=== PATIENT | female | born 1995 | race Two or more races ===

== ENCOUNTER → 2017-01-20 | Outpatient (REF) | payer OTHER ==
[2017-01-20 18:27] LABS: CONTROL LINE UCG INT CTR LINE PRESENT
== END ==
LOC: M SMT 17:04
PROVIDERS: ATTEND Nurse Practitioner Family
DX: N39.0 Urinary tract infection, site not specified (principal)

== ENCOUNTER → 2017-01-27 | Outpatient (CLI) | payer OTHER ==
[~2017-01-27] MED LIST: ISOVUE-370 76% 100ML VIAL (Q9967) As Ordered ONE
--- NOTE | 2017-01-28 07:01 | REP ---
Clinical: Gross hematuria. Recurrent urinary tract infection. Technique: Axial precontrast, contrast enhanced, and delayed images of the abdomen and pelvis from the lung bases to the pubic symphysis using 100 ml Isovue 370 intravenous contrast material with coronal and sagittal re-formations. Findings: Evaluation of the urinary tract system in all phases of enhancement demonstrates normal kidneys, ureters, and bladder. No evidence for nephroureterolithiasis, hydroureteronephrosis, renal cystic or mass lesions. Liver, spleen, pancreas, gallbladder, and bilateral adrenal glands are normal. The enteric system is without obstruction or acute inflammatory process. Normal terminal ileum and appendix are identified in the right lower quadrant. Pelvis demonstrates normal bladder and age-appropriate uterus/adnexa. Physiologic changes related to the bilateral ovaries noted. No ascites. No free air. No adenopathy. Vasculature normal. Musculoskeletal structures are intact. Impression: Normal pre and postcontrast CT of the abdomen and pelvis. Signed by Fran Maynard MD 01/28/2017 06:52 A
== END ==
LOC: M RAD 14:07
PROVIDERS: ATTEND Nurse Practitioner Family
DX: N39.0 Urinary tract infection, site not specified (principal); R31.0 Gross hematuria

== ENCOUNTER 2017-06-04 11:19 | Day surgery (SDC) | payer OTHER ==
[~2017-06-04] VITALS: Ht 160 cm; Wt 65.8 kg
[~2017-06-04 11:19] MED LIST changes: +CETI10TA PO; +FISH1000 PO; -ISOVUE-370 76% 100ML VIAL (Q9967) As Ordered ONE; +LR 1,000 ML IV ONE; +REFR0.1D OU; +REST0.05 OU; +TYLE325T5 PO; +VITA100T PO; +YASM3TAB2 PO; +ZOMI2.5T PO
[2017-06-04 11:55] LABS: MEAN CORPUSCULAR HEMOGLOBIN 30.8 pg (27.0-33.0); MEAN CORPUSCULAR VOLUME 90.7 fl (80.0-96.0); RED CELL DISTRIBUTION WIDTH 12.9 % (11.5-14.5); WHITE BLOOD COUNT 6.3 K/mm3 (4.0-10.0)
[2017-06-04] MEDS ORDERED: PROPOFOL 200 MG/20 ML VIAL As Ordered ONE (12:31)
[2017-06-04] MEDS ORDERED: fentaNYL 100 MCG/2 ML INJECTION (J3010) As Ordered ONE (12:31)
[2017-06-04] MEDS ORDERED: LIDOCAINE 2% INJ 100 MG/5 ML SDV (FOR ANES.) As Ordered ONE (12:31)
[2017-06-04] MEDS ORDERED: MIDAZOLAM INJ 2 MG/2 ML VIAL (J2250) As Ordered ONE (12:31)
[2017-06-04] MEDS ORDERED: LIDOCAINE W/EPINEPHRINE 1% 20ML VIAL As Ordered ONE (13:32)
[2017-06-04] MEDS ORDERED: KETAMINE HCL 200 MG/20 ML VIAL As Ordered ONE (13:53)
[2017-06-04 15:05] VITALS: BP 128/72
--- NOTE | 2017-06-05 06:26 | RO ---
DATE OF PROCEDURE: 06/04/2017 PREOPERATIVE DIAGNOSIS: Cervical dysplasia. POSTOPERATIVE DIAGNOSIS: Cervical dysplasia. PROCEDURE: Loop electrosurgical excision procedure (LEEP). SURGEON: Dr. Leonardo John WALL WASHER: Negative. ANESTHESIA: IV Sedation, IVETTE Cantor. COMPLICATIONS: None. IV FLUIDS: 600 mL isotonic fluid. ESTIMATED BLOOD LOSS: Minimal. URINE OUTPUT: 50 mL in and out catheter. 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 The patient was taken to the operating room. After informed consent was obtained and risks/benefits/alternatives/indications were again reviewed with the patient , the patient was then placed in low lithotomy position. After IV sedation was obtained, and the patient was appropriately prepped and draped and a time out was performed, an in and out catheter was used to drain the bladder. A sterile speculum was then placed into the patient's vagina and the cervix was visualized. The cervix was cleaned with a dry swab and then coated with 3% diluted acetic acid. A paracervical block with 10 mL of 1% lidocaine with epinephrine was then placed in a circumferential fashion in routine appropriate fashion without complications. At this point, the LEEP device was activated and utilized to remove a cervical wedge of tissue using a moderate sized hat. A 5 mm Bovie cautery ball was then utilized for hemostasis as was cautery of the surgical site. Noted hemostasis at the conclusion of this. Tissue was handed off with stitch placed at 6 o'clock as well as 12 o'clock for analysis for pathology. The segment was in two pieces. At the conclusion of this, hemostasis was noted to be obtained and remained. All instruments were removed from the patient's vagina. A manual sweep demonstrated no retained foreign objects. Sponge, lap and needle counts correct times three. The patient was taken to the postanesthesia care unit (PACU) in stable condition without complication. No indication for Anti-biotics. Dana John [facility]
== END 2017-06-04 15:15 | disposition home or self-care (01) ==
LOC: M SDC 11:19
PROVIDERS: ATTEND Student in an Organized Health Care Education/Training Program
DX: N87.1 Moderate cervical dysplasia (principal); Z87.891 Personal history of nicotine dependence; Z79.899 Other long term (current) drug therapy
CPT/HCPCS: 36415; 57522; 84702; 85027; 86850; 86900; 86901; 88305; J2250; J3010